=== PATIENT | female | born 1985 | race Caucasian/White ===

== ENCOUNTER → 2016-07-21 | Outpatient (CLI) | payer OTHER ==
--- NOTE | 2016-07-22 06:50 | US ---
EXAMINATION TYPE: US kidneys/renal and bladder DATE OF EXAM: 07/21/2016 4:10 PM COMPARISON: NONE CLINICAL HISTORY: frequent UTI's. EXAM MEASUREMENTS: Right Kidney: 11.1 x 4.7 x 5.8 cm Left Kidney: 11.1 x 5.5 x 6.1 cm ANATOMY: TECHNOLOGIST IMPRESSION: Right Kidney: No hydronephrosis or masses seen Left Kidney: No hydronephrosis or masses seen Bladder: not well distended There is no evidence for hydronephrosis at this point in time. Cortical medullary differentiation is maintained bilaterally. No masses are identified on images saved. The urinary bladder is not greatl y distended making evaluation suboptimal but no suspicious intraluminal mass is identified . IMPRESSION: Unremarkable study.
== END | disposition home or self-care (01) ==
LOC: RADUSWWP 16:09
PROVIDERS: ATTEND Internal Medicine
DX: N39.0 Urinary tract infection, site not specified (principal)
CPT/HCPCS: 76770